=== PATIENT | male | born 1990 | race Caucasian/White ===

== ENCOUNTER 2018-04-03 10:41 | Emergency (ER) | payer SELFPAY ==
[2018-04-03 11:02] VITALS: BP 143/84
[2018-04-03] MEDS ORDERED: IPRATROPIUM/ALBUTEROL 0.5-2.5 MG/3 ML AMPUL NEB ONE (11:09)
--- NOTE | 2018-04-03 11:10 | ER Document Report ---
ED General - General Chief Complaint: Chest Congestion Stated Complaint: COUGH Time Seen by Provider: 04/03/18 11:05 TRAVEL OUTSIDE OF THE [place] IN LAST 30 DAYS: No - HPI Notes: Productive cough for 5 days. Yellow sputum, malaise weakness fatigue shortness of breath. Denies fever chills. No chronic medical conditions. Normally healthy 27-year-old. Patient smokes a pack of cigarettes daily. No history of lung disease. - Related Data Allergies/Adverse Reactions: No Known Allergies Allergy (Verified 04/03/18 10:47) Past Medical History - Social History Smoking Status: Current Some Day Smoker Family History: Reviewed & Not Pertinent Review of Systems - Review of Systems Notes: REVIEW OF SYSTEMS: CONSTITUTIONAL: -fevers, -chills, general weakness and fatigue EENT: -eye pain, -difficulty swallowing, -nasal congestion CARDIOVASCULAR: -chest pain, -syncope. RESPIRATORY: cough and sputum production GASTROINTESTINAL: -abdominal pain, -nausea, -vomiting, -diarrhea GENITOURINARY: -dysuria, -hematuria MUSCULOSKELETAL: -back pain, -neck pain SKIN: -rash or skin lesions. HEMATOLOGIC: -easy bruising or bleeding. LYMPHATIC: -swollen, enlarged glands. NEUROLOGICAL: -altered mental status or loss of consciousness, -headache, - neurologic symptoms PSYCHIATRIC: -anxiety, -depression. ALL OTHER SYSTEMS REVIEWED AND NEGATIVE. Physical Exam - Vital signs Vitals: Temp Pulse Resp BP Pulse Ox 99.6 F 96 20 143/84 H 95 04/03/18 10:59 04/03/18 10:59 04/03/18 10:59 04/03/18 10:59 04/03/18 10:59 Course - Re-evaluation Re-evalutation: 04/03/18 11:12 We will get CBC looking for leukocytosis and anemia, BMP for renal function, chest x-ray to evaluate possible pneumonia. Will initiate respiratory therapy with [employer] and apartment. 04/03/18 12:29 Given multiple breathing treatments in the department feeling much improved. Extensive lab workup finds mild leukocytosis, no lactic acidosis. Patient's chest x-ray read as normal but auscultates as if he is a right upper lobe pneumonia. Will initiate therapy with doxycycline. Patient will need referral to acute care and clinic follow-up in the next 2 days. - Vital Signs Vital signs: Temp Pulse Resp BP Pulse Ox 99.6 F 96 20 143/84 H 95 04/03/18 10:59 04/03/18 10:59 04/03/18 10:59 04/03/18 10:59 04/03/18 10:59 - Laboratory Result Diagrams: 04/03/18 11:26 04/03/18 11:26 Laboratory results interpreted by me: 04/03/18 11:26 WBC 17.6 H Seg Neutrophils % 86.4 H Lymphocytes % 5.7 L Absolute Neutrophils 15.2 H Discharge - Discharge Clinical Impression: Pneumonia Qualifiers: Pneumonia type: due to unspecified organism Laterality: right Lung location: upper lobe of lung Qualified Code(s): J18.1 - Lobar pneumonia, unspecified organism Condition: Stable Disposition: HOME, SELF-CARE Instructions: Pneumonia ([facility]) Prescriptions: Doxycycline Hyclate 100 mg PO BID #20 capsule
[2018-04-03 11:42] LABS: ABSOLUTE MONOCYTES (AUTO) 1.3 10^3/uL (0.1-1.4); ABSOLUTE NEUT (AUTO) 15.2 10^3/uL (1.7-8.2); BASOPHILS % (AUTO) 0.1 % (0-2); EOSINOPHILS % (AUTO) 0.2 % (0-6); HEMATOCRIT 44.5 % (37.9-51.0); HEMOGLOBIN 15.4 g/dL (13.5-17.0); LYMPHOCYTES % (AUTO) 5.7 % (13-45); MEAN CORPUSCULAR HEMOGLOBIN 30.1 pg (27.0-33.4); MEAN CORPUSCULAR HGB CONC 34.7 g/dL (32.0-36.0); MEAN CORPUSCULAR VOLUME 87 fl (80-97); MONOCYTES % (AUTO) 7.6 % (3-13); PLATELET COUNT 264 10^3/uL (150-450); RED BLOOD COUNT 5.13 10^6/uL (4.35-5.55); SEGMENTED NEUTROPHILS % (AUTO) 86.4 % (42-78); TOTAL CELLS COUNTED % (AUTO) 100 %; WHITE BLOOD COUNT 17.6 10^3/uL (4.0-10.5)
[2018-04-03 12:02] LABS: ANION GAP 15 (5-19); BLOOD UREA NITROGEN 10 mg/dL (7-20); CALCIUM 10.1 mg/dL (8.4-10.2); CARBON DIOXIDE 28 mmol/L (22-30); CHLORIDE 100 mmol/L (98-107); GLUCOSE 105 mg/dL (75-110); POTASSIUM 4.3 mmol/L (3.6-5.0); SODIUM 142.6 mmol/L (137-145)
--- NOTE | 2018-04-03 12:14 | RADIOLOGY REPORT (SQ) ---
EXAM DESCRIPTION: CHEST 2 VIEWS COMPLETED DATE/TIME: 04/03/2018 11:44 am REASON FOR STUDY: cough COMPARISON: None. EXAM PARAMETERS: NUMBER OF VIEWS: two views TECHNIQUE: Digital Frontal and Lateral radiographic views of the chest acquired. RADIATION DOSE: NA LIMITATIONS: none FINDINGS: LUNGS AND PLEURA: No opacities, masses or pneumothorax. No pleural effusion. MEDIASTINUM AND HILAR STRUCTURES: No masses or contour abnormalities. HEART AND VASCULAR STRUCTURES: Heart normal size. No evidence for failure. BONES: No acute findings. HARDWARE: None in the chest. OTHER: No other significant finding. IMPRESSION: NO ACUTE RADIOGRAPHIC FINDING IN THE CHEST. TECHNICAL DOCUMENTATION: JOB ID: [id number] [employer]- All Rights Reserved Reading location - IP/workstation name: [email or web address]
== END 2018-04-03 12:56 | disposition home or self-care (01) ==
LOC: ER 10:41
DX: J18.1 Lobar pneumonia, unspecified organism (principal); R09.89 Other specified symptoms and signs involving the circulatory and respiratory systems; R05 Cough; R53.81 Other malaise; R53.1 Weakness; R53.83 Other fatigue; R06.02 Shortness of breath; F17.210 Nicotine dependence, cigarettes, uncomplicated
CPT/HCPCS: 99283; 36415; 83605; 85025; 80048; 71046; J7620